=== PATIENT | male | born 1950 | race Caucasian/White ===

== ENCOUNTER 2024-12-04 05:41 | Observation (INO) ==
--- NOTE | 2024-11-20 14:54 | Anesthesiology Consultation ---
Date of Service November 20, 2024 Assessment & Plan (1) Encounter for pre-operative examination: Chart Review Chart Review: Pending: Refer to Additional Notes / Consult section (pt scheduled to see Cardio AFTER surgery for recent chest pain; please send note to Cardio requesting appt prior to surgery) and Patient NOT seen in Pre Admission Testing -Pending Cardiology evaluation (pt c/o chest pain as well as 'severe' coronary artery calcifications noted on 09/2024 and 10/2024 chest imaging). PCP referred pt to cardio however appt currently scheduled for after surgery. Infectious Disease screening: Per PAT nursing assessment on 11/20/24, No known infectious disease contacts in past 10 days or current infectious disease symptoms. No recent travel outside the country. History Surgery Operation Date: 12/04/24 07:30 Proposed Procedures p Robotic assisted Navigational Bronchoscopy - Lc Lemus MD s Endobronchial Ultrasound - Lc Lemus MD Height/Weight Height: 5 ft 11 in Weight: 83.007 kg Allergies Allergy/AdvReac Type Severity Reaction Status Date / Time No Known Allergies Allergy Unknown Verified 11/20/24 12:45 Medications Home Medications Medication Instructions Recorded Confirmed Last Taken B-complex with vitamin C 1 cap PO DAILY 11/01/24 11/20/24 Unknown albuterol sulfate 90 mcg/actuation 2 puff inhalation Q6H PRN SOB 11/01/24 11/20/24 Unknown aerosol inhaler atorvastatin 40 mg tablet 20 mg PO HS 11/01/24 11/20/24 Unknown docusate sodium 100 mg capsule 100 mg PO BID PRN Constipation 11/01/24 11/20/24 Unknown (Colace) hydrochlorothiazide 25 mg tablet 12.5 mg PO QAM 11/01/24 11/20/24 Unknown hydrocodone 10 mg-acetaminophen 1 tab PO Q6H PRN Pain 11/01/24 11/20/24 Unknown 325 mg tablet morphine 15 mg immediate release 15 mg PO Q8H PRN Pain 11/01/24 11/20/24 Unknown tablet naloxone 4 mg/actuation nasal spray 1 spray intranasal UD PRN overdose 11/01/24 11/20/24 Unknown naproxen 500 mg tablet 500 mg PO BID 11/01/24 11/20/24 Unknown nicotine 14 mg/24 hr daily 1 patch transdermal DAILY 11/01/24 11/20/24 Unknown transdermal patch tamsulosin 0.4 mg capsule (Flomax) 0.4 mg PO QAM 11/01/24 11/20/24 Unknown umeclidinium 62.5 mcg-vilanterol 1 inh inhalation QAM 11/20/24 11/20/24 Unknown 25 mcg/actuation powdr for inhalation (Anoro Ellipta) Past Medical History Medical History (Updated 11/20/24 @ 14:51 by Alvina Parham PA-C) Asthma Bilateral hand pain saw Rheum; had +LETI and +RF; per note, 'based on history and exam no current concerns for rheumatoid arthritis or connective tissue disease. will get additional labs for completeness.' Chronic constipation Chronic pain syndrome CKD (chronic kidney disease), stage II CKD II/III per PCP note; 'renal labs stable' COPD (chronic obstructive pulmonary disease) Depression pt denies Dilated aortic root mild per 10/2024 ECHO: 4.2cm GERD without esophagitis pt denies Hearing loss History of BPH Hypertension Mild cognitive impairment Nicotine dependence Prediabetes Pulmonary nod[facility]/ finding on imaging; upcoming procedure Sinus bradycardia Spinal stenosis of lumbar region without neurogenic claudication Urinary frequency Past Surgical History Surgical History (Updated 11/20/24 @ 13:00 by Mandy Gonsales) History of esophagogastroduodenoscopy (EGD) History of urologic surgery urolift sx Hx of bilateral cataract extraction Hx of colonoscopy Hx of right inguinal hernia repair Social History Smoking Status: Current every day smoker Smoking cigarettes per day: 5 Do You Dip or Chew Tobacco: No Hx Alcohol Use: Yes (none for 30 years) Hx Substance Use: No substance use type: does not use Lab Results Anesthesia Preop Results Results Anesthesia Widget: WBC 7.08 K/ul (4.8-10.8) 11/09/24 Hgb 13.9 g/dl (14.0-18.0) L 11/09/24 Hct 40.7 % (42.0-52.0) L 11/09/24 Plt 256 K/uL (130-400) 11/09/24 Na 136 mmol/L (136-145) 11/09/24 K 3.7 mmol/L (3.5-5.1) 11/09/24 Cl 103 mmol/L (98-107) 11/09/24 CO2 25 mmol/L (21-32) 11/09/24 BUN 39 mg/dl (6-23) H 11/09/24 Creat 1.33 mg/dl (0.6-1.4) 11/09/24 Glucose Level 120 mg/dl (70-99(Fasting)) H 11/09/24 PT 10.6 Seconds (9.0-12.0) 11/09/24 INR 1.0 (0.9-1.1) 11/09/24 Testing Electrocardiogram Date: 10/02/24 Findings: + SB @ (49bpm) Compared to 3.8.24, PVCs no longer present. Echocardiogram Date: 10/22/24 EF: 55-60% LV Function: normal RWMA: + none mod cLVH. Mildly dilated RV. Mod biatrial dilation. Mildly dilated aortic root: 4.2cm Grade I DD. Mild PA. Stress Test Date: 05/07/22 Type: nuclear Pt reached only 51% MPHR. Lexiscan myocardial perfusion study negative for infarct or ischemia. Normal LV size and systolic function (EF 71%). No WMA No Lexiscan induced ECG changes No anginal sx Other Testing Low Cost CT Chest 11/02/24: Heart,Mediastinum, and LN: There are scattered atherosclerotic calcifications. No thoracic aortic aneurysm. Main pulmonary artery is mildly dilated at 3.3cm, which can be associated with pulmonary artery hypertension. The heart size is normal. Visual Coronary Artery Calcifications: Severe IMPRESSION: Lung-RADS: 4B: Very suspicious. There is a complex lesion or collection of lesions about the minor fissure, including a new 9mm spiculated solid nodule. Severe coronary artery calcium.
[2024-12-04] MEDS: LR 15ML/HR IV SCH (06:15)
[2024-12-04] MEDS ORDERED: PROMETHAZINE HCL 6.25 MG in SODIUM CHLORIDE 0.9% 50 ML IV PRN (06:56)
[2024-12-04] MEDS ORDERED: FLUMAZENIL 0.1 MG/1 ML 10 ML VIAL IV PRN (06:56)
[2024-12-04] MEDS ORDERED: ePHEDrine sulfate 50 MG/ML AMP IV PRN (06:56)
[2024-12-04] MEDS ORDERED: LABETALOL HCL IV 5 MG/ML 20ML IV PRN (06:56)
[2024-12-04] MEDS ORDERED: ATROPINE SULFATE 0.1 MG/ML 10ML SYR IV PRN (06:56)
[2024-12-04] MEDS ORDERED: NALOXONE HCL 0.4 MG/1 ML VIAL/CARP IV PRN ×2 (06:56→15:29)
--- NOTE | 2024-12-04 06:57 | History & Physical Bridge Note ---
Date of Service December 04, 2024 History & Physical Bridge Note I have examined the patient, reviewed the History & Physical and in the interval since the performance of the History & Physical I have noted the following changes of clinical significance: no changes noted
[2024-12-04] MEDS ORDERED: PROPOFOL IV EMULSION 10 MG/ML 20 ML VIAL IV ONE ×2 (07:08→08:43)
[2024-12-04] MEDS ORDERED: CISATRACURIUM BESYLATE IV SOLN 2 MG/ML 10 ML VIAL IV ONE (07:12)
[2024-12-04] MEDS ORDERED: fentaNYL citrate PF 100 MCG/2 ML VIAL ONE (07:12)
[2024-12-04] MEDS ORDERED: MIDAZOLAM HCL 1 MG/ML 2ML VIAL ONE (07:13)
[2024-12-04] MEDS ORDERED: NEOSTIGMINE METHYLSULFATE 1 MG/ML 10ML VIAL ONE (08:33)
[2024-12-04] MEDS ORDERED: GLYCOPYRROLATE 0.2 MG/ML VIAL ONE (08:34)
[2024-12-04] MEDS ORDERED: ePHEDrine sulfate 50 MG/5 ML SYR ONE (08:35)
--- NOTE | 2024-12-04 09:04 | Procedure Note ---
Procedure Note: Bronchoscopy Procedure Procedure: Fiberoptic bronchoscopy Electromagnetic navigational bronchoscopy with fluoroscopic guidance Endobronchial ultrasound with transbronchial needle aspiration of lymph nodes, 2 stations Electromagnetic navigational bronchoscopy with transbronchial biopsies under fluoroscopic guidance Electromagnetic navigational bronchoscopy with fine-needle aspiration under fluoroscopic guidance Placement of fiducial under fluoroscopic guidance Provider: Lc Lemus MD Consent: Signed by patient and timeout verified prior to procedure. Impression: Suspicious pulmonary nodule with PET uptake Procedure: Patient was brought to the OR suite. Consent was verified. Appropriate radiographic studies had been reviewed prior to the procedure. General anesthesia was initiated by the anesthesia team and the patient was intubated with an 8.0 endotracheal tube. After initiation of general anesthesia, the fiberoptic scope was advanced through the existing endotracheal tube via the adapter. The tube was sounded. It was withdrawn to approximately 5 or 6 cm above the loida and secured in plac e. A systematic inspection of the airways was then conducted. The right tracheobronchial tree was normal in anatomic configuration with normal mucosa. Left tracheobronchial tree also demonstrated a normal anatomic configuration with normal mucosa. No endobronchial lesions were identified. The fiberoptic scope was then removed. The robotic adapter was then secured to the endotracheal tube and secured using the flexible arm attached to the bed. The patient had previously been placed on a bed with an electromagnetic navigation field and a tilt table in place. The robot was advanced to the head of the bed and the robotic arm was docked to the endotracheal tube via the robotic adapter. Robot arm was withdrawn in normal fashion and the scope attached with the antibuckling device. The robotic scope was then maneuvered into the endotracheal tube where controller registration took place. Once that was confirmed the scope was advanced to the main loida and verified in good position. Navigational registration was then conducted without difficulty. Once registration was completed, the robotic bronchoscope was used to navigate to the right middle lobe pulmonary nodule. Once the scope was approximately 15 to 20 mm from the lesion, a fluoroscopic tomographic spin was conducted with reconstruction of images. The lesion was able to be verified on the tomogram. It was marked and additional navigation was conducted under direct fluoroscopic guidance with augmented fluoroscopy. We did conduct radial ultrasound evaluation which did reveal an eccentric nodule. Once the scope was appropriately angled towards the lesion, initially attempted to pass a Terry view needle however the needle bounced off and went superior inferior into the nodule marked on the tomogram. Despite multiple attempts, we were unable to get the needle to take purchase and pass into the lesion. We then transition to an arc point needle and made similar attempts. We were able to get fairly close to the lesion but were not able to make it into the center of the lesion. Decision at that point in time was made to proceed with biopsy forceps and the hope that we can get a bigger piece of tissue. Under direct augmented fluoroscopy, the biopsy forceps were advanced into the lesion. A total of 6 biopsies were taken with touch preps reviewed by cytology and augmented fluoroscopy using the [employer]te[employer] ([employer]) system. These were highly atypical and will await final path. Once adequate silly material had been collected, a fiducial was placed under fluoroscopic guidance and verified to be in good position on 3 planes. The endobronchial ultrasound was then advanced through the adapter via the existing endotracheal tube. A survey of mediastinal lymph node stations was conducted including the 4R, 4L, 7, 10/11 R, and 10/11 L stations. Mildly enlarged lymph nodes were identified within the level 7 and 10L stations. These were biopsied using a 21-gauge needle. Rapid onsite cytologic evaluation did not demonstrate overt malignancy and augmented microscopy showed only some questionable reactive cells. Await final pathology The scope was then withdrawn to the tip of the endotracheal tube and hemostasis was confirmed. Scope was removed from the airway. The patient was turned over to anesthesia for extubation and returned to the PACU having tolerated the procedure well without complication. EBL: Less than 10 ml Impression: 1. Normal inspection bronchoscopy. 2. Successful electromagnetic robotic navigation to a 11 mm right middle lobe pulmonary nodule. Status post biopsy and FNA under fluoroscopic guidance. Await final pathology. 3. Mildly enlarged mediastinal adenopathy within the level 7 and level 10L stations with transbronchial needle aspiration of level 7 and level 10L lymph nodes. Await final pathology [facility] [place] Procedure Codes (Charges) Pulmonary/Thoracic Procedure 1: Pulmonary and Thoracic: 89099 Navigational Bronchoscopy Procedure 2: Pulmonary and Thoracic: 32693 Bronchoscopy w/ transbronchial lung bx Procedure 3: Pulmonary and Thoracic: 45358 Bronchoscopy, w/EBUS 1 or 2 mediastinal Procedure 4: Pulmonary and Thoracic: 67941 Bronchoscopy w/ needle bx Procedure 5: Pulmonary and Thoracic: 75540 Placement of a fiducial marker
[2024-12-04] MEDS: ONDANSETRON INJ 2 MG/ML 2 ML VIAL IV PRN (09:16)
--- NOTE | 2024-12-04 10:03 | XRay Report ---
XR chest 1V portable CLINICAL HISTORY: Post Bronchoscopy COMPARISON STUDY: Chest CT November 30, 2024. FINDINGS: There is a moderate size right pneumothorax. Superior pleural separation measures 5.1 cm. R ight middle lobe lesion is better depicted on prior CT. This likely contains a fiducial marker. There is underlying emphysema. Lower lung densities favor atelectasis. There is no left pneumothorax. IMPRESSION: Moderate right pneumothorax. This finding will be called/faxed to the ordering provider at time of dictation. ACT 112: Negative or not required by law. Electronically signed by: aRfi Patel M.D. 12/04/2024 10:01 AM
[2024-12-04] MEDS: fentaNYL citrate PF 100 MCG/2 ML VIAL IV PRN (11:05)
--- NOTE | 2024-12-04 11:11 | Anesthesiology Progress Note ---
Date of Service December 04, 2024 Anesthesia Post Procedure Vital Signs Vital Signs: Temp Pulse Pulse Resp BP Pulse Ox O2 Del Method 12/04/24 10:46 57 L 15 138/68 98 Non-rebreather 12/04/24 10:16 53 L 18 157/75 H 99 Non-rebreather 12/04/24 09:46 36.4 C L 66 16 154/73 H 95 Nasal Cannula 12/04/24 09:36 36.4 C L 64 14 152/71 H 92 Nasal Cannula 12/04/24 09:25 68 16 114/56 L 91 Nasal Cannula 12/04/24 09:15 81 13 95/56 L 91 Nasal Cannula 12/04/24 09:07 36.1 C L 90 20 109/73 98 Oxymask 12/04/24 06:14 Room Air 12/04/24 06:14 36.6 C 61 20 198/94 H 94 Room Air O2 Flow Rate 12/04/24 10:46 15 12/04/24 10:16 15 12/04/24 09:46 3 12/04/24 09:36 2 12/04/24 09:25 2 12/04/24 09:15 2 12/04/24 09:07 10 12/04/24 06:14 12/04/24 06:14 Transfer of Care Handoff Completed per policy Notes Mental Status: alert / awake / arousable Patient Amnestic to Procedure: Yes Nausea / Vomiting: adequately controlled Pain: adequately controlled Airway Patency, RR, SpO2: see Notes below BP & HR: stable & adequate Hydration State: stable & adequate Anesthetic Complications: no major complications apparent Notes: Pt has pneumothorax,2ndary to procedure. Dr Lemus will place chest tube.
--- NOTE | 2024-12-04 11:30 | Procedure Note ---
Procedure Note Date of Service December 04, 2024 Procedure: 14 Kittitian pigtail catheter placement Indication: Prostate biopsy pneumothorax Consent risk and benefits were discussed with the patient. He agreed. Written consent was verified prior to commencement of the procedure. Product Owner Dr. Lemus Estimated blood loss: Less than 5 mL Anesthesia: 5 mL 1% lidocaine without epinephrine locally. Procedure: The patient underwent robotic navigational bronchoscopy with transbronchial biopsies for PET avid pulmonary nodule suspicious for malignancy. In the postoperative/PACU setting x-ray was performed which revealed a large pneumothorax. Patient complained of some chest pain on that side. He was consented for placement of a small bore pigtail catheter for iatrogenic pneumothorax. The patient was placed in a semiupright seated position. The infraclavicular space in the midclavicular line on the right was cleansed using chlorhexidine and a sterile field established. An area approximately 2 cm below the clavicle in the midclavicular line was anesthetized with lidocaine. The muscle and deeper soft tissues were anesthetized using a finder needle. With the finder needle I was able to to aspirate air. The finder needle was then withdrawn. A small skin tere was made with a scalpel. An 18-gauge needle was then advanced on a similar line until I was able to aspirate air. The syringe was withdrawn leaving the needle in place. A wire was passed through the needle and then the needle was withdrawn leaving the wire in the pleural space. A 14 Kittitian dilator was then passed over the wire to dilate the skin and soft tissues. This passed with ease. The dilator was removed leaving the wire in place. A 14 [place] pigtail catheter was then loaded on a straightening catheter and advanced over the wire into the pleural space. The stiffening catheter and wire were removed leaving the pigtail catheter in place. A three-way stopcock was attached. The tube was attached to suction with a 1+ airleak on the Pleur-evac system. The skater catheter fixation system was attached to the chest wall and the catheter secured. Catheter was attached to suction at 20 cm of water. Post procedure chest x-ray is pending. The patient tolerated the procedure well. [facility] [place] Procedure Codes (Charges) Pulmonary/Thoracic Procedure 1: Pulmonary and Thoracic: 96531 Tube thoracostomy Coding CPT Codes Pulmonary/Thoracic - Pulmonary and Thoracic: 42590 Tube thoracostomy ([id number]) Additional Codes Date of Service (PG.[email or web address])
--- NOTE | 2024-12-04 12:09 | History & Physical Report ---
Date of Service December 04, 2024 Assessment & Plan (1) Pneumothorax after biopsy: Plan: Moderate right-sided pneumothorax status post robotic bronchoscopy performed for tissue biopsy of concerning RIGHT sided lung nodule. Chest tube successfully placed with improvement in RIGHT-sided chest discomfort. Patient remained hemodynamically stable throughout. Continue with suction for now. Hopeful for clamping of chest tube overnight with subsequent removal tomorrow. Chest x-ray post chest tube pending. Hopeful we will be able to clamp chest tube overnight along with injection molding operator chest x-ray and removal post resolution of pneumothoax. Patient with significant pain medications which she can continue from the outpatient setting. (2) Pulmonary nodule: Plan: High probability of cancer. Pathology pending post robotic bronchoscopy with tissue biopsy. (3) COPD (chronic obstructive pulmonary disease): Plan: Continue with Anoro and as needed rescue inhaler. He is not bronchospastic on exam today. (4) Nicotine dependence: Plan: Continue with nicotine patch. (5) Hypertension: Plan: Remains on hydrochlorothiazide. (6) CKD (chronic kidney disease), stage II: Plan: Avoid nephrotoxic agents if able. Will check a.m. labs. (7) Prediabetes: Plan: Not on medications at this time. (8) Chronic pain syndrome: Plan: On multiple narcotic medications. Will continue while inpatient. (9) care home (current) use of opiate analgesic: Plan: Continue with narcotic medications as above. History of Present Illness Chief Complaint: RIGHT-Sided Pneumothorax Primary Care Provider: Heidi Choi PA-C Patient is referred by his primary care provider for evaluation management of a pulmonary nodule. History is obtained from discussion with the patient and review the electronic medical record. The patient is a 74-year-old male with an over [id number] history of tobacco abuse who continues to smoke about 4 cigarettes a day and was seen by his primary care provider at the OR. They participated in shared decision making and discussed lung cancer screening. The patient was agreeable to proceed. He had his initial LDCT performed September 24, 2024 which demonstrated subpleural cluster of pulmonary nodules which were suspicious. He then underwent a PET scan 10/10/2024 demonstrating mild uptake with an SUV of 3.6. He was subsequently referred to pulmonary for additional evaluation. Patient has been on Wixela for some time. He believes it is beneficial. He does have an albuterol inhaler to use on an as-needed basis. He reports an a.m. cough. No significant wheezing. No shortness of breath. The patient is retired. 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 He was exposed to asbestos from the brake lining. There is no family history or personal history of lung cancer or malignancy. He lives in [place] alone. He does have family locally. He has 2 dogs and a cat at home. No other occupational or environmental exposures. The patient denies any fevers chills night sweats or other constitutional symptoms. He does not report any chest pain, hemoptysis, palpitations, chest pressure, or lower extremity edema. He has a fairly sedentary lifestyle. Patient underwent robotic bronchoscopy today with needle biopsies performed to interrogate pulmonary nodule. Unfortunately, the patient had postprocedural RIGHT-sided pneumothorax. He did have some complaints of RIGHT-sided chest discomfort. He was not hypoxic. He was not tachypneic. There is no change in hemodynamics otherwise. He was monitored in PACU and chest tube was placed anteriorly. Patient to be admitted overnight for monitoring. Allergies Allergy/AdvReac Type Severity Reaction Status Date / Time No Known Allergies Allergy Unknown Verified 12/04/24 06:08 Home Medications Medication Instructions Recorded Confirmed Type B-complex with vitamin C 1 cap PO DAILY 11/01/24 12/04/24 History albuterol sulfate 90 mcg/actuation 2 puff inhalation Q6H PRN SOB 11/01/24 12/04/24 History aerosol inhaler atorvastatin 40 mg tablet (Lipitor) 20 mg PO HS 11/01/24 12/04/24 History docusate sodium 100 mg capsule 100 mg PO BID PRN Constipation 11/01/24 12/04/24 History (Colace) hydrochlorothiazide 25 mg tablet 12.5 mg PO QAM 11/01/24 12/04/24 History hydrocodone 10 mg-acetaminophen 1 tab PO Q6H PRN Pain 11/01/24 12/04/24 History 325 mg tablet morphine 15 mg immediate release 15 mg PO Q8H PRN Pain 11/01/24 12/04/24 History tablet naloxone 4 mg/actuation nasal spray 1 spray intranasal UD PRN overdose 11/01/24 12/04/24 History naproxen 500 mg tablet 500 mg PO BID 11/01/24 12/04/24 History nicotine 14 mg/24 hr daily 1 patch transdermal DAILY 11/01/24 12/04/24 History transdermal patch tamsulosin 0.4 mg capsule (Flomax) 0.4 mg PO QAM 11/01/24 12/04/24 History umeclidinium 62.5 mcg-vilanterol 1 inh inhalation QAM 11/20/24 12/04/24 History 25 mcg/actuation powdr for inhalation (Anoro Ellipta) Past Med/Surg History Problem List (Updated 12/04/24 @ 12:17 by Young Mccoy PA-C) Pneumothorax after biopsy Encounter for pre-operative examination COPD (chronic obstructive pulmonary disease) Pulmonary nodule Vitamin A deficiency Spinal stenosis of lumbar region without neurogenic claudication Sensorineural hearing loss (SNHL), bilateral Prediabetes Nicotine dependence, cigarettes, uncomplicated Mild cognitive impairment care home (current) use of opiate analgesic Hypertensive chronic kidney disease with stage 1 through stage 4 chronic kidney disease, or unspecified chronic kidney disease GERD without esophagitis Chronic pain syndrome CKD (chronic kidney disease), stage II Age-related nuclear cataract, bilateral Acquired claw foot Depression (Chronic) Hypertension (Chronic) Medical History (Updated 12/04/24 @ 12:17 by Young Mccoy PA-C) Chest pain per chart review, pt c/o CP. Consult in chart from PCP requesting Cardio eval for CP; per pt, scheduled with [facility] for 12/2024 Sinus bradycardia Dilated aortic root mild per 10/2024 ECHO: 4.2cm Nicotine dependence Chronic constipation Mild cognitive impairment Bilateral hand pain saw Rheum; had +LETI and +RF; per note, 'based on history and exam no current concerns for rheumatoid arthritis or connective tissue disease. will get additional labs for completeness.' Urinary frequency History of BPH Spinal stenosis of lumbar region without neurogenic claudication Asthma Hearing loss [facility] finding on imaging; upcoming procedure Prediabetes GERD without esophagitis pt denies Hypertension Depression pt denies COPD (chronic obstructive pulmonary disease) CKD (chronic kidney disease), stage II CKD II/III per PCP note; 'renal labs stable' Chronic pain syndrome Surgical History History of urologic surgery urolift sx Hx of right inguinal hernia repair History of esophagogastroduodenoscopy (EGD) Hx of colonoscopy Hx of bilateral cataract extraction Social History (Updated 11/08/24 @ 11:05 by Perla Cervantes RN) Smoking Status: Current every day smoker Tobacco Type: Cigarettes Age Started Using Tobacco: 18; packs per day: 0.25; Cigarettes Per Day: 5; Second Hand Exposure: No; Do You Dip or Chew Tobacco: No; Tobacco Cessation Education Requested by Patient: No Hx Alcohol Use: Yes (none for 30 years) Hx Substance Use: No Preferred Language: Thai Communication Ability: Effective Mail Forwarding System Markup Clerk Required: No Beliefs That Will Affect Care: None Current Living Situation: Alone Other Information That Helps Us Care for You: No Feels Safe at Home: Yes Safety Concerns: Feels Safe At This Time Assistive Devices: Denture - Upper, Denture - Lower and Glasses Review of Systems Review of Systems: A complete 10 point review of systems was reviewed with the patient with pertinent positives and negatives as per history of present illness. All else were negative. Physical Exam Physical Exam: VITAL SIGNS Vital signs and nursing notes were reviewed. GENERAL 74-year-old male appearing his stated age who is in no acute distress. Communicates well with provider and answers questions appropriately. SKIN RIGHT-sided anterior chest tube in place. Dressing clean, dry, and intact. NOSE Midline and without cyanosis. MOUTH/OROPHARYNX Without perioral cyanosis. NECK Neck with FROM. LUNGS Chest wall evaluation demonstrates normal chest wall A:P diameter. Auscultation reveals clear breath sounds appreciated bilaterally. CARDIAC RRR with S1/S2. No murmur, rubs, or gallops appreciated. ABDOMEN Abdominal inspection demonstrates a flat abdomen. BS normoactive all four quadrants. No tenderness, palpable masses, or ascites noted. EXTREMITIES Nail clubbing not present. No peripheral cyanosis. No pretibial edema present. +3/5 radial palpated throughout. PSYCH A&Ox3 and cooperates fully with examiner. Pt is very pleasant and interacts well with examiner. Results & Data Results & Data Vital Signs (Past 12 Hours) Vital Signs Temp Pulse Pulse Resp BP Pulse Ox O2 Del Method 12/04/24 11:16 55 L 16 159/79 H 99 Non-rebreather 12/04/24 10:46 57 L 15 138/68 98 Non-rebreather 12/04/24 10:16 53 L 18 157/75 H 99 Non-rebreather 12/04/24 09:46 36.4 C L 66 16 154/73 H 95 Nasal Cannula 12/04/24 09:36 36.4 C L 64 14 152/71 H 92 Nasal Cannula 12/04/24 09:25 68 16 114/56 L 91 Nasal Cannula 12/04/24 09:15 81 13 95/56 L 91 Nasal Cannula 12/04/24 09:07 36.1 C L 90 20 109/73 98 Oxymask 12/04/24 06:14 Room Air 12/04/24 06:14 36.6 C 61 20 198/94 H 94 Room Air O2 Flow Rate 12/04/24 11:16 15 12/04/24 10:46 15 12/04/24 10:16 15 12/04/24 09:46 3 12/04/24 09:36 2 12/04/24 09:25 2 12/04/24 09:15 2 12/04/24 09:07 10 12/04/24 06:14 12/04/24 06:14 Code Status & VTE Plan VTE Prophylaxis Plan VTE Prophylaxis will be ordered: Yes Reason for no VTE drug order: Contraindicated PG Care Time/CCT Total # of Minutes Spent Total Time Spent with Patient: Total time spent is greater than 50% in coordination of care (as documented) at patient's floor/unit and/or counseling patient: Coding Level of Care Code 17407 INT INP/OBS CARE MIN Diagnoses Pneumothorax after biopsy J95.811 Pulmonary nodule R91.1 COPD (chronic obstructive pulmonary disease) J44.9 Nicotine dependence F17.200 Hypertension I10 CKD (chronic kidney disease), stage II N18.2 Prediabetes R73.03 Chronic pain syndrome G89.4 care home (current) use of opiate analgesic Z79.891
--- NOTE | 2024-12-04 13:04 | XRay Report ---
XR chest 1V portable CLINICAL HISTORY: Post chest tube COMPARISON STUDY: 12/04/2024 FINDINGS: There is interval right pleural pigtail catheter. There is a trace residual right apical pn eumothorax, significantly improved. No consolidation or pleural effusion. IMPRESSION: Trace right apical pneumothorax, significantly improved. ACT 112: Negative or not required by law. Electronically signed by: Damien Falcon M.D. 12/04/2024 1:03 PM
[2024-12-04] MEDS: KETOROLAC TROMETHAMINE 15 MG/ML VIAL IV PRN (14:29)
[2024-12-04] MEDS ORDERED: ONDANSETRON INJ 2 MG/ML 2 ML VIAL IV PRN (14:48)
[2024-12-04] MEDS ORDERED: NALOXONE NASAL SPRAY 4 MG ER HOMEPACK PRN (14:48)
[2024-12-04] MEDS ORDERED: DOCUSATE SODIUM 100 MG CAP PO PRN (14:48)
[2024-12-04] MEDS ORDERED: ACETAMINOPHEN 325 MG TAB PO PRN (14:48)
[2024-12-04] MEDS ORDERED: ALBUTEROL HFA 8 GM INHALER INH PRN (14:48)
[2024-12-04] MEDS: MoRPHine SULFATE IR 15 MG TAB (IMMEDIATE RELEASE) PO PRN (15:28)
[2024-12-04] MEDS: hydroCHLOROthiazide 25 MG TAB PO ONE (15:53)
--- NOTE | 2024-12-04 19:42 | XRay Report ---
Exam(s): XR CXR 1 VIEW EXAM: XR Chest, 1 View CLINICAL HISTORY: Reason for exam: increased RIGHT sided pain. TECHNIQUE: Frontal view of the chest. COMPARISON: Chest radiograph On 12/04/2024 at 1244 hrs. FINDINGS: Hardware: Right-sided chest tube. Lungs/pleura: Slightly increased small right apical pneumothorax. Bibasilar opacities likely represent atelectasis. Heart/mediastinum: Stable mild enlargement of the cardiac silhouette. Atherosclerotic changes in aorta. Soft tissues: Unremarkable. Bones: No acute fracture. Upper abdomen: Normal. IMPRESSION: Right-sided chest tube. Slightly increased small right apical pneumothorax. Electronically signed by: Vianney Morley M.D. 12/04/24 19:41 PM
--- NOTE | 2024-12-04 19:50 | Communication Note ---
Date of Service: December 04, 2024 #Patient status post robotic bronchoscopy #Moderate pneumothorax status post R anterior pigtail chest tube Patient complaining of pain at the site and pleuritic chest pain. Placed back on suction. Per RN, eyelet was exterior and was readvanced into pleural cavity prior to my arrival. I evaluated patient at bedside. He is AAOx3. No acute distress. 2L O2. Hemodynamically stable. No air leak present. Breath sounds diminished but equal bilaterally. Dressing taken down, eyelet remains interior. No subcutaneous emphysema present. Possible apical residual pneumothorax on imaging. Site was redressed with Vaseline impregnated gauze and sealed with Tegaderm dressing. Patient does have some pain at the insertion site. Denies significant pleuritic pain at this time. Pain regimen reviewed, appears multimodal and adequate. CXR ordered for AM. Instructed RN to contact myself with any questions or concerns, including detachment from suction, change in clinical status, air leak, etc. This was discussed with Dr. Lemus via telephone with plan of care confirmed.
[2024-12-04] MEDS: ATORVASTATIN 20 MG TAB PO SCH (20:33)
[2024-12-04] MEDS: NAPROXEN 250 MG TAB PO SCH (20:33)
[2024-12-04] MEDS: NICOTINE 21 MG/24 HR TDSY TD SCH (20:34)
[2024-12-04] MEDS: HYDROcodone/ACETAMINOPHEN 10/325 TAB PO PRN (20:34)
[2024-12-05 07:45] VITALS: RESP 20
--- NOTE | 2024-12-05 08:05 | XRay Report ---
EXAM: XR chest 1V portable CLINICAL HISTORY: F/U KAB SJB. TECHNIQUE: An X-ray image of the chest is obtained in 1 AP projection. COMPARISON: No prior studies are available for comparison. FINDINGS: Pulmonary Parenchyma: Bilateral lower lung zones and right para-hilar ill-defined patchy opacities seen Bilateral prominent bronchovascular markings and hilar vessel seen Picture suggesting pulmonary congestion, yet the possibility of underlying infectious process can't be ruled out Blunting of left costophrenic angle, could be due to pleural effusion versus pleural thickening No evidence of right pleural effusion or pleural thickening. Heart and Mediastinum: Heart size and shape are normal. No mediastinal widening or masses. No hilar or mediastinal lymphadenopathy. Bony Thorax: Bony thorax appears intact without fractures or deformities. Soft Tissues: Tube is seen projecting over right side of chest. IMPRESSION: 1. Bilateral lower lung zones and right para-hilar ill-defined patchy opacities seen. 2. Bilateral prominent bronchovascular markings and hilar vessel seen. 3. Picture suggesting pulmonary congestion, yet the possibility of underlying infectious process can't be ruled out. 4. Blunting of left costophrenic angle, could be due to pleural effusion versus pleural thickening. 5. Tube is seen projecting over right side of chest. Electronically signed by Heather Segundo 12-05-2024 08:04 AM
[2024-12-05] MEDS: TAMSULOSIN HCL 0.4 MG CAP PO SCH (08:15)
[2024-12-05] MEDS: VITAMIN B COMPLEX TAB PO SCH (08:15)
[2024-12-05] MEDS: hydroCHLOROthiazide 25 MG TAB PO SCH (08:15)
[2024-12-05] MEDS: UMECLIDINIUM/VILANTEROL 62.5/25MCG 7 PUFFS/INHALER INH SCH (08:15)
--- NOTE | 2024-12-05 08:17 | Pulmonology Progress Note ---
Date of Service December 05, 2024 Assessment & Plan (1) Pneumothorax after biopsy: Plan: Moderate right-sided pneumothorax status post robotic bronchoscopy performed for tissue biopsy of concerning RIGHT sided lung nodule. A.m. chest x-ray this morning shows resolution of RIGHT-sided apical pneumothorax. Chest tube clamped at 0730. Will repeat chest x-ray at 0930. If there is no return of pneumothorax, chest tube will be pulled and patient will be able to be discharged at that time. Pain is adequately controlled at this time. (2) Pulmonary nodule: Plan: High probability of cancer. Pathology pending post robotic bronchoscopy with tissue biopsy. (3) COPD (chronic obstructive pulmonary disease): Plan: Continue with Anoro and as needed rescue inhaler. He is not bronchospastic on exam today. (4) Nicotine dependence: Plan: Continue with nicotine patch. (5) Hypertension: Plan: Remains on hydrochlorothiazide. (6) CKD (chronic kidney disease), stage II: Plan: Avoid nephrotoxic agents if able. Will check a.m. labs. (7) Prediabetes: Plan: Not on medications at this time. (8) Chronic pain syndrome: Plan: On multiple narcotic medications. Will continue while inpatient. 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 Admission and Anticipated Discharge Date Admission Date: December 04, 2024 Subjective Patient seen and evaluated at bedside this morning. Reports no discomfort at the chest tube site today. Complains of pain in his lower back and is awaiting his maintenance narcotic medications. No pleuritic discomfort. No hemoptysis. Review of Systems Review of Systems: A complete 10 point review of systems was reviewed with the patient with pertinent positives and negatives as per history of present illness. All else were negative. Physical Exam Physical Exam: VITAL SIGNS Vital signs and nursing notes were reviewed. GENERAL 74-year-old male appearing his stated age who is in no acute distress. Communicates well with provider and answers questions appropriately. SKIN RIGHT-sided anterior chest tube in place. Dressing clean, dry, and intact. NOSE Midline and without cyanosis. MOUTH/OROPHARYNX Without perioral cyanosis. NECK Neck with FROM. LUNGS Chest wall evaluation demonstrates normal chest wall A:P diameter. Auscultation reveals clear breath sounds appreciated bilaterally. CARDIAC RRR with S1/S2. No murmur, rubs, or gallops appreciated. ABDOMEN Abdominal inspection demonstrates a flat abdomen. BS normoactive all four quadrants. No tenderness, palpable masses, or ascites noted. EXTREMITIES Nail clubbing not present. No peripheral cyanosis. No pretibial edema present. +3/5 radial palpated throughout. PSYCH A&Ox3 and cooperates fully with examiner. Pt is very pleasant and interacts well with examiner. Results & Data Results & Data Vital Signs (Past 12 Hours) Vital Signs Temp Pulse Pulse Resp BP Pulse Ox O2 Del Method 12/05/24 07:44 36.6 C 58 L 20 164/79 H 91 Room Air 12/05/24 07:14 Nasal Cannula 12/05/24 06:56 52 L 12/05/24 02:02 36.7 C 55 L 18 127/73 93 Nasal Cannula 12/04/24 22:39 36.5 C 56 L 18 121/67 91 Nasal Cannula 12/04/24 21:46 55 L O2 Flow Rate 12/05/24 07:44 12/05/24 07:14 2 12/05/24 06:56 12/05/24 02:02 2 12/04/24 22:39 2 12/04/24 21:46 PG Care Time/CCT Total # of Minutes Spent Total Time Spent with Patient: Total time spent is greater than 50% in coordination of care (as documented) at patient's floor/unit and/or counseling patient: Coding Level of Care Code 08934 SUB INP/OBS CARE 12/01MIN Diagnoses Pneumothorax after biopsy J95.811 Pulmonary nodule R91.1 COPD (chronic obstructive pulmonary disease) J44.9 Nicotine dependence F17.200 Hypertension I10 CKD (chronic kidney disease), stage II N18.2 Prediabetes R73.03 Chronic pain syndrome G89.4 [facility] (current) use of opiate analgesic Z79.891
[2024-12-05] MEDS ORDERED: NICOTINE 14 MG/24 HR PATCH TD SCH (09:00)
--- NOTE | 2024-12-05 10:06 | XRay Report ---
KUB HISTORY: Abdominal pain COMPARISON STUDY: 03/24/2015 FINDINGS: There is a large amount of retained stool. No bowel obstruction seen. No gross free air. IMPRESSION: Large amount of retained stool. ACT 112: Negative or not required by law. The above report was generated using voice recognition software. It may contain grammatical, syntax o r spelling errors. Electronically signed by: Damien Falcon M.D. 12/05/2024 10:05 AM
--- NOTE | 2024-12-05 10:30 | XRay Report ---
XR chest 1V portable CLINICAL HISTORY: f/u chext tube COMPARISON STUDY: Earlier the same date FINDINGS: Single view portable chest demonstrates a large caliber at chest tube identified overlying the mid right hemithorax. There is a small right apical pneumothorax identified which is seen in retr ospect on the earlier study and there appears to have enlarged slightly. It measures approximately 9 mm. The bibasilar discoid atelectasis is described in the prior examination is less pronounced and lung v olumes have increased. IMPRESSION: Small right apical pneumothorax and a patient with a right chest tube. ACT 112: Negative or not required by law. Electronically signed by: Sari Estrada M.D. 12/05/2024 10:28 AM
[2024-12-05 11:39] VITALS: TEMP 97.5; O2SAT 90
--- NOTE | 2024-12-05 13:23 | XRay Report ---
XR chest 1V portable at 12:56 PM CLINICAL HISTORY: Follow-up pneumothorax COMPARISON STUDY: Same date at 10:05 AM FINDINGS: No significant interval change. Small right apical pneumothorax remains visible. Right ches t tube noted. Small area of airspace opacity in the right lung base associated with a presumed biopsy clip. Left lung is clear. IMPRESSION: Stable exam; small right apical pneumothorax unchanged. ACT 112: Negative or not required by law. Electronically signed by: Sari Estrada M.D. 12/05/2024 1:22 PM
--- NOTE | 2024-12-05 14:03 | Procedure Note ---
Procedure Note Date of Service December 05, 2024 Procedure: Pigtail Catheter Chest Tube REMOVAL Attending: Dr. Lemus APC: Young Mccoy PA-C Indication: Improvement of RIGHT-Sided Pneumothorax Anesthesia: None Consent obtained prior to chest tube placement yesterday (12/04/2024). Prior to procedure, chest x-ray films were reviewed by myself and demonstrated improvement of RIGHT sided apical pneumothorax despite the tube being clamped. He had been without symptoms throughout the whole day and had not had a lead. Case had been closely reviewed with my attending and it was agreed that it was an appropriate time to remove the chest tube. A time-out was completed verifying correct patient, procedure, site, positioning, and implant(s) or special equipment if applicable. The dressing was taken down exposing only the catheter. Chlorhexidine was used to prep the skin around the catheter device itself. After the chlorhexidine and dried, the patient performed deep inspiratory and expiratory 3 times. On the third and expiration, the catheter was briskly removed. Patient had no discomfort throughout the procedure. The catheter was inspected and removed intact. A Vaseline gauze dressing and Tegaderm was applied to the area. Patient tolerated procedure well. No immediate complications were appreciated. Blood Loss: None Complications: None [facility] [place] Codes (Charges) Pulmonary/Thoracic Procedure 1: Pulmonary and Thoracic: 49798 Remove lung catheter Coding CPT Codes Pulmonary/Thoracic - Pulmonary and Thoracic: 57609 Remove lung catheter ([id number]) Additional Codes Date of Service ([email or web address])
[2024-12-05 14:13] VITALS: BP 152/75; PULSE 61
--- NOTE | 2024-12-05 14:20 | Discharge Summary ---
Date of Service December 05, 2024 Admission HPI Per Admitting Provider Patient is referred by his primary care provider for evaluation management of a pulmonary nodule. History is obtained from discussion with the patient and review the electronic medical record. The patient is a 74-year-old male with an over [id number] history of tobacco abuse who continues to smoke about 4 cigarettes a day and was seen by [facility] provider [facility]. They participated in shared decision making and discussed lung cancer screening. The patient was agreeable to proceed. He had his initial LDCT performed September 24, 2024 which demonstrated subpleural cluster of pulmonary nodules which were suspicious. He then underwent a PET scan 10/10/2024 demonstrating mild uptake with an SUV of 3.6. He was subsequently referred to pulmonary for additional evaluation. Patient has been on Wixela for some time. He believes it is beneficial. He does have an albuterol inhaler to use on an as-needed basis. He reports an a.m. cough. No significant wheezing. No shortness of breath. The patient is retired. 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 He was exposed to asbestos from the brake lining. There is no family history or personal history of lung cancer or malignancy. He lives in [place] alone. He does have family locally. He has 2 dogs and a cat at home. No other occupational or environmental exposures. The patient denies any fevers chills night sweats or other constitutional symptoms. He does not report any chest pain, hemoptysis, palpitations, chest pressure, or lower extremity edema. He has a fairly sedentary lifestyle. Patient underwent robotic bronchoscopy today with needle biopsies performed to interrogate pulmonary nodule. Unfortunately, the patient had postprocedural RIGHT-sided pneumothorax. He did have some complaints of RIGHT-sided chest discomfort. He was not hypoxic. He was not tachypneic. There is no change in hemodynamics otherwise. He was monitored in PACU and chest tube was placed anteriorly. Patient to be admitted overnight for monitoring. Admission Exam (Per Admitting) Constitutional no acute distress and not cachectic ENMT Mouth: + dentition abnormality and + dentures Mallampati Class: II Neck normal visual inspection, trachea midline and + facial hair; neck extension not limited Respiratory normal respiratory effort; no respiratory distress Auscultation: + diminished lung sounds Cardiovascular Rate/Rhythm: regular rate and regular rhythm Heart Sounds: no murmur Vessels: no carotid bruit Musculoskeletal Spine: normal cervical ROM and no pain with cervical ROM Extremities: full ROM of extremities Neurologic moves all extremities Motor/Sensory: no sensory deficit Psychiatric Orientation: alert and oriented x 3 Discharge Data Procedures Performed Operation Date: 12/04/24 07:30 Actual Procedures p Robotic assisted Navigational Bronchoscopy, Transbronchial Biopsy with Fluoroscopy, Transbronchial Needle Aspiration, Placement of a Fidulical, Endobronchial Ultrasound-Guided Transbronchial Needle Aspiration(Not Applicable) - Lc Lemus MD s Endobronchial Ultrasound - Lc Lemus MD Hospital Course (1) Pneumothorax after biopsy: Moderate right-sided pneumothorax status post robotic bronchoscopy performed for tissue biopsy of concerning RIGHT sided lung nodule. A.m. chest x-ray this morning shows resolution of RIGHT-sided apical pneumothorax. Chest tube clamped at 0730. Will repeat chest x-ray at 0930. If there is no return of pneumothorax, chest tube will be pulled and patient will be able to be discharged at that time. Pain is adequately controlled at this time. (2) Pulmonary nodule: High probability of cancer. Pathology pending post robotic bronchoscopy with tissue biopsy. (3) COPD (chronic obstructive pulmonary disease): Continue with Anoro and as needed rescue inhaler. He is not bronchospastic on exam today. (4) Nicotine dependence: Continue with nicotine patch. (5) Hypertension: Remains on hydrochlorothiazide. (6) CKD (chronic kidney disease), stage II: Avoid nephrotoxic agents if able. Will check a.m. labs. (7) Prediabetes: Not on medications at this time. (8) Chronic pain syndrome: On multiple narcotic medications. Will continue while inpatient. 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 Plan Patient will require CXR prior to appointment on Tuesday (12/07/2024) with Dr. Lemus. Coding Level of Care Code 63391 IN/OBS DISCH 30 MIN/LESS Diagnoses Pneumothorax after biopsy J95.811 Pulmonary nodule R91.1 COPD (chronic obstructive pulmonary disease) J44.9 Nicotine dependence F17.200 Hypertension I10 CKD (chronic kidney disease), stage II N18.2 Prediabetes R73.03 Chronic pain syndrome G89.4 senior care (current) use of opiate analgesic Z79.891
== END 2024-12-05 15:33 | disposition home or self-care (01) ==
LOC: 2N 05:41 → ASU 05:41